=== PATIENT | female | born 1980 | race Caucasian/White ===

== ENCOUNTER 2019-07-11 23:08 | Emergency (ER) | payer OTHER ==
[~2019-07-11] VITALS: Ht 160 cm; Wt 66.2 kg
[2019-07-11 23:31] LABS: URINE BILIRUBIN NEGATIVE (Negative); URINE BLOOD 2+ (Negative); URINE CLARITY CLEAR; URINE COLOR YELLOW; URINE GLUCOSE-RANDOM NEGATIVE (Negative); URINE KETONES NEGATIVE (Negative); URINE NITRITE-REFLEX NEGATIVE (Negative); URINE PROTEIN NEGATIVE (Negative); URINE SPECIFIC GRAVITY <= 1.005 (1.005-1.030); URINE UROBILINOGEN 0.2 E.U./dl (0.2-1.0)
[2019-07-11 23:34] LABS: URINE LEUKOCYTES-REFLEX 2+ (Negative)
[2019-07-11 23:40] LABS: AMP/METHAMP POSITIVE (Negative); BACTERIA-REFLEX >30 Many /HPF (None Seen); BARBITURATES Negative (Negative); BENZODIAZEPINES Negative (Negative); CASTS None Seen /LPF (None Seen); COCAINE Negative (Negative); CRYSTALS None Seen /LPF (None Seen); METHADONE Negative (Negative); MUCUS 0-3 Light strn/LPF (None Seen); OPIATES Negative (Negative); PCP Negative (Negative); SQUAMOUS 0-3 Few /LPF (0-3); THC Negative (Negative); URINE WBC-REFLEX >25 Many /HPF (0-5); WBC CLUMPS Moderate (None Seen)
[2019-07-11 23:54] LABS: ABSOLUTE EOSINOPHILS 0.1 thou/uL (0.0-0.7); ABSOLUTE LYMPHOCYTES 2.6 thou/uL (0.8-5.3); ABSOLUTE MONOCYTES 0.9 thou/uL (0.0-1.2); ABSOLUTE NEUTROPHILS 4.7 thou/uL (1.6-8.1); BASOPHILS 0.6 %; EOSINOPHILS 1.6 %; HEMATOCRIT 37.8 % (37.0-47.0); LYMPHOCYTES 30.8 %; MCH 30.6 pg (26.0-34.0); MCHC 34.4 g/dL (28.0-37.0); MCV 88.9 fL (80.0-100.0); MONOCYTES 10.8 %; MPV 7.5 fl. (7.2-11.1); NUCLEATED RBCS 0 /100WBC; PLATELET COUNT* 222 thou/uL (150-400); POLYS 56.2 %; RBC 4.25 mil/uL (4.20-5.00); RDW-CV 12.7 % (10.5-14.5); WBC 8.4 thou/uL (4.0-11.0)
[2019-07-12 00:02] LABS: CALCIUM 8.6 mg/dL (8.5-10.1); CREATININE 0.6 mg/dL (0.6-1.3)
[2019-07-12 00:07] LABS: ALBUMIN 3.9 g/dL (3.4-5.0); TOTAL BILIRUBIN 0.5 mg/dL (<0.1-1.0); TOTAL PROTEIN 7.7 g/dL (6.4-8.2)
[2019-07-12 00:09] LABS: POTASSIUM 2.8 mmol/L (3.5-5.1)
[2019-07-12 00:11] LABS: ALCOHOL < 10 mg/dL (<10); SALICYLATE < 2.8 mg/dL (2.8-20.0)
[2019-07-12 00:12] LABS: ACETAMINOPHEN < 2 ug/mL (10-30)
[2019-07-12] MEDS ORDERED: BACTRIM DS TAB1 EACH PO (09:49)
[2019-07-13] MEDS ORDERED: NEURONTIN100 MG PO (00:46)
[2019-07-14 11:00] VITALS: BP 100/58
== END 2019-07-14 11:00 ==
LOC: M.ERS 23:08
PROVIDERS: Emergency Medicine
DX: F23 Brief psychotic disorder (principal); R45.851 Suicidal ideations; N39.0 Urinary tract infection, site not specified; F15.10 Other stimulant abuse, uncomplicated; Z59.0 Homelessness; Z88.8 Allergy status to other drugs, medicaments and biological substances